=== PATIENT | male | born 1975 | race Caucasian/White ===

== ENCOUNTER 2021-02-12 09:54 | Emergency (ER) | payer OTHER, SELFPAY ==
[2021-02-12 10:33] VITALS: BP 140/82; PULSE 63; RESP 19; TEMP 36.1; O2SAT 97; BMI 28.7
--- NOTE | 2021-02-12 11:21 | ED.ALLEREA ---
HPI - Allergic Reaction General Chief complaint: Allergic Reaction Stated complaint: allergic reaction diff breathing Time Seen by Provider: 02/12/21 11:21 Source: patient Limitations: no limitations History of Present Illness HPI narrative: Patient presents to the ER after being seen yesterday for allergic reaction. Patient complaining of diffuse rash that was coming going. Patient was started on Benadryl and prednisone and Pepcid yesterday. Patient began to have worsening symptoms today with some questionable shortness of breath. Patient has no prior history of similar events. Patient has no known allergies. Patient has washed all clothing and denies any new detergents new medications new food ingestions. Symptoms are [id number]. Patient denies any other complaints at this time were similar events in the past. Pictures reviewed on his phone with psych diffuse hives in the lower extremities which have now resolved. MD complaint: hives Related Data Previous Rx's Medication Instructions Recorded prednisone 10 mg tablet 10 mg PO DAILY #32 tab 02/12/21 Allergies Allergy/AdvReac Type Severity Reaction Status Date / Time bee pollen [bee stings] Allergy Anaphylaxis Verified 02/12/21 10:37 grass pollen Allergy Hives Verified 02/12/21 10:37 Review of Systems Constitutional: Constitutional: Denies chills, Denies fever(s) and Denies headache(s) ENT: Denies headache(s), Denies nasal discharge, Denies nasal obstruction and Denies sore throat Cardiovascular: Cardiovascular: Denies chest pain, Denies lightheadedness and Reports dyspnea Respiratory: Respiratory: Denies cough and Reports dyspnea Gastrointestinal: Gastrointestinal: Denies diarrhea, Denies nausea and Denies vomiting Musculoskeletal: Musculoskeletal: Reports no additional musculoskeletal complaints Neurologic: Denies headache(s) [facility] Past Medical History Attestation statement: The following information was validated with the patient. Social History Social History Advance Directives: No Advance Directives Information Provided: Yes Physical Exam Vital Signs: Vital Signs: Last Vital Signs Temp 97 F 02/12/21 10:33 Pulse 63 02/12/21 10:33 Resp 19 02/12/21 10:33 BP 140/82 H 02/12/21 10:33 Pulse Ox 97 02/12/21 10:33 BMI result Body Mass Index 28.7 vital signs have been reviewed as normal and appeared to be correct. Blood pressure normal. Heart rate normal. Respiration rate normal. Temperature normal. Oxygen saturation normal. Appearance: Alert. Oriented X3. No acute distress. Head: Normal external exam. Normocephalic. Atraumatic. Eyes: PERRLA. EOMI. Conjunctiva and sclera normal. Eyelids normal. ENT: Pharynx normal. Uvula midline. Moist mucous membranes. Oropharynx is clear airway is patent no stridor Neck: Soft full range of motion CVS: Heart regular rate and rhythm no murmurs and rubs Respiratory: Breath sounds are clear to auscultation bilaterally. No accessory muscle use noted. Back: No CVA tenderness. Full range of motion noted. Skin: Urticarial rash seen in the posterior aspect of the neck has mostly resolved in the lower extremities at this time. Extremities: No lower extremity edema. Full range of motion of all extremities. Neuro: Oriented X 3. No motor deficit. No sensory deficit. Reflexes normal. No focal deficit Course Course Course Narrative: Urticaria Allergic reaction Anaphylaxis Viral syndrome 11:37 a.m. will plan to observe patient at this time give 50 mg of Benadryl IM patient has been taking only 25 mg of Benadryl p.o.. Symptoms have improved from earlier this morning. Patient has no airway compromise O2 sat is 97% on room air 12:41 p.m. Positive improvement of symptoms will plan to discharge at this time. Discharge Plan Discharge Clinical Impression: Urticaria Patient Disposition: Home, Self-Care Instructions: Urticaria (ED) Additional Instructions: 50 mg of Benadryl every 6 hours for itching it will make you sleepy Stop all the prednisone start new prescription Take as 6 tablets days 1-2: 4 tablets days 3-4: 3 tablets days 5-6: 2 tablets days 7-8: 1 tablet days 9-10 stop other prednisone Return if symptoms worsen Prescriptions: New prednisone 10 mg tablet 10 mg PO DAILY Qty: 32 RF: 0 Stand Alone Forms: Work/School Release
[2021-02-12] MEDS: diphenhydrAMINE HCL 50 MG/ML VIAL IM (11:58)
[2021-02-12] MEDS: predniSONE 20 MG TABLET PO (12:13)
== END 2021-02-12 13:07 | disposition home or self-care (01) ==
PROVIDERS: Emergency Provider Emergency Medicine; PCP Family Medicine
DX: L50.9 Urticaria, unspecified (principal)
CPT/HCPCS: 96372; 99283; 99284; J1200